=== PATIENT | male | born 1965 | race Caucasian/White ===

== ENCOUNTER 2017-05-28 14:56 | Emergency (ER) | payer BC ==
[2017-05-28 15:03] VITALS: BP 126/75
[2017-05-28] MEDS ORDERED: Lidocaine 1% 20 ML MDV INJECT ONE (15:09)
[2017-05-28] MEDS ORDERED: Diphtheria,Pertussis(Acell),Tetanus Vaccine 0.5 ML SDV IM ONE (15:09)
[2017-05-28] MEDS ORDERED: Bacitracin Oint 1 GM U/D Packet TOP ONE (15:10)
--- NOTE | 2017-05-28 15:11 | EDM.PDOC ---
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 He end up with a laceraion on the thumb side that went through the nailbed area. Onset: Today Duration: Hour(s): Location: Reports: Upper Extremity, Right Quality: Reports: Throbbing Associated Symptoms: Reports: No Other Symptoms Right 2-Index finger Pain Score (Numeric/FACES): 7 - Related Data Allergies Allergy/AdvReac Type Severity Reaction Status Date / Time No Known Allergies Allergy Verified 05/28/17 15:05 Home Meds: Home Meds Losartan [Cozaar] 50 mg PO DAILY 05/18/16 [History] Past Medical History Cardiovascular History: Reports: Hypertension Musculoskeletal History: Reports: Fracture - Infectious Disease History Infectious Disease History: Reports: Chicken Pox - Past Surgical History Musculoskeletal Surgical History: Reports: Shoulder Surgery Social & Family History - Tobacco Use Smoking Status *Q: Never Smoker - Recreational Drug Use Recreational Drug Use: No ED ROS GENERAL - Review of Systems Review Of Systems: See Below Constitutional: Reports: No Symptoms HEENT: Reports: No Symptoms Respiratory: Reports: No Symptoms Cardiovascular: Reports: No Symptoms Endocrine: Reports: No Symptoms GI/Abdominal: Reports: No Symptoms : Reports: No Symptoms Musculoskeletal: Reports: Other (pt has a laceration of the tip of the rt index finger. ) ED EXAM, SKIN/RASH Exam: See Below Exam Limited By: No Limitations General Appearance: Alert Back Exam: Other (pt has a laceration on the thumb side of the rt index finger. This did extend into the nailbed area, 1 and1/4 inch laceration. An xray was obtained which revealed a tiny chipfracture off of the end. ) Extremities: Other Course - Vital Signs Last Recorded V/S: Last Vital Signs Temp 35.9 C 05/28/17 15:04 Pulse 73 05/28/17 15:04 Resp 18 05/28/17 15:04 BP 126/75 05/28/17 15:04 Pulse Ox 97 05/28/17 15:04 - Orders/Labs/Meds Meds: Medications Discontinued Medications Generic Name Dose Route Start Last Admin Trade Name Freq PRN Reason Stop Dose Admin Bacitracin 1 dose 05/28/17 15:10 05/28/17 15:27 Bacitracin Oint 1 Gm TOP 05/28/17 15:11 1 dose ONETIME ONE Administration Diphtheria/Tetanus/Acell Pertussis 0.5 ml 05/28/17 15:09 05/28/17 15:53 Adacel IM 05/28/17 15:10 Not Given .ONCE ONE Lidocaine HCl 20 ml 05/28/17 15:09 05/28/17 15:27 Xylocaine 1% INJECT 05/28/17 15:10 20 ml ONETIME ONE Administration - Re-Assessments/Exams Free Text/Narrative Re-Assessment/Exam: 05/28/17 17:15 the thumb was soaked. It was irrigated with saline and the wound was infiltrated. The wound was brought together with chromic 5-0 in the sub q. It was then closed with 5-0prolene. a stabilizing stitch was placed through the nail and the skin otherwise was brought together with 5-0 prolene. Departure - Departure Time of Disposition: 17:19 Disposition: Home, Self-Care 01 Condition: Fair Clinical Impression: Laceration, Open fracture of distal phalangeal tuft - Discharge Information Instructions: Laceration Care, Adult, [id number] Referrals: Liborio Cole MD [Primary Care Provider] - Forms: ED Department Discharge Care Plan Goals: leave present dressing on for 2 days, appt with Dr Juarez on mon or mon, percocet 5/325 q6h prn for pain, keflex 500mg tid for 10 days.
--- NOTE | 2017-05-29 11:50 | CR ---
Right hand Findings: There is a fracture of the tuft of the distal phalanx second finger. There is an overlying soft tissue injury. The remaining bones are intact. Impression: 1. Open second finger tuft fracture.
== END 2017-05-28 18:13 | disposition home or self-care (01) ==
LOC: JP.ED 14:56
DX: S62.630B Displaced fracture of distal phalanx of right index finger, initial encounter for open fracture (principal); I10 Essential (primary) hypertension; Z23 Encounter for immunization; Z79.899 Other long term (current) drug therapy; W23.0XXA Caught, crushed, jammed, or pinched between moving objects, initial encounter; Y93.89 Activity, other specified
CPT/HCPCS: 12042; 29130; 73140-26-F6; 73140-F6; 90471; 99284-25

== ENCOUNTER 2018-04-08 21:56 | Emergency (ER) | payer BC ==
--- NOTE | 2018-04-08 22:07 | EDM.PDOC ---
ED HPI GENERAL MEDICAL PROBLEM - General Chief Complaint: Chest Pain Stated Complaint: CHEST PAIN Time Seen by Provider: 04/08/18 22:15 Source of Information: Reports: Patient, RN History Limitations: Reports: No Limitations - History of Present Illness INITIAL COMMENTS - FREE TEXT/NARRATIVE: 53 yo male with a pHx of HTN and no other known risk factors for CAD presents with intermittent substernal chest pain over the past few days not associated with any activity or eating. When he gets these sx's he does not have SOB or diaphoresis. He is pretty much asymptomatic now in the ER. He has tried taking TUMS without relief. He does admit to taking ibuprofen 600 mg 2-3 times/day for sometime now for shoulder pain. No melena. No vomiting. Some radiation to his mid back. His last attack was just before arrival tonight. Onset: Unknown/Unsure Duration: Day(s):, Intermittent, Waxing/Waning Location: Reports: Chest, Back Quality: Reports: Burning Severity: Moderate Improves with: Reports: None Worsens with: Reports: None Context: Reports: Other (using ibuprofen regularly for shoulder pain.) Associated Symptoms: Reports: Chest Pain. Denies: Diaphoresis, Fever/Chills, Shortness of Breath Treatments FITTER TYPE BAR AND SEGMENT: Reports: NSAIDS, Other (see below) (TUMS) chest pain Pain Score (Numeric/FACES): 1 - Related Data Allergies Allergy/AdvReac Type Severity Reaction Status Date / Time No Known Allergies Allergy Verified 04/08/18 22:03 Home Meds: Home Meds Losartan [Cozaar] 50 mg PO DAILY 05/18/16 [History] Past Medical History Cardiovascular History: Reports: Hypertension Musculoskeletal History: Reports: Fracture - Infectious Disease History Infectious Disease History: Reports: Chicken Pox - Past Surgical History Musculoskeletal Surgical History: Reports: Shoulder Surgery ED ROS GENERAL - Review of Systems Review Of Systems: See Below Constitutional: Reports: No Symptoms HEENT: Reports: No Symptoms Respiratory: Reports: No Symptoms Cardiovascular: Reports: Chest Pain (substernal) Endocrine: Reports: No Symptoms GI/Abdominal: Reports: No Symptoms : Reports: No Symptoms Musculoskeletal: Reports: Back Pain (radiation from the chest, does not have back pain without the substernal pain. ) Skin: Reports: No Symptoms Neurological: Reports: No Symptoms ED EXAM, GENERAL - Physical Exam Exam: See Below Exam Limited By: No Limitations General Appearance: Alert, WD/WN, No Apparent Distress Eye Exam: Bilateral Eye: Normal Inspection Ears: Normal External Exam, Normal Canal, Hearing Grossly Normal Ear Exam: Bilateral Ear: Auricle Normal, Canal Normal Nose: Normal Inspection, Normal Mucosa, No Blood Throat/Mouth: Normal Inspection, Normal Lips, Normal Oropharynx, Normal Voice, No Airway Compromise Head: Atraumatic, Normocephalic Neck: Normal Inspection Respiratory/Chest: No Respiratory Distress, Lungs Clear, Normal Breath Sounds, No Accessory Muscle Use, Chest Non-Tender Cardiovascular: Regular Rate, Rhythm, No Edema GI/Abdominal: Normal Bowel Sounds, Soft, Non-Tender, No Distention Back Exam: Normal Inspection. No: CVA Tenderness (R), CVA Tenderness (L) Extremities: Normal Inspection Neurological: Alert, Oriented, CN II-XII Intact, Normal Cognition Psychiatric: Normal Affect, Normal Mood Skin Exam: Warm, Dry, Intact, Normal Color, No Rash EKG INTERPRETATION EKG Date: 04/08/18 Time: 22:00 Rhythm: NSR Rate (Beats/Min): 72 [place] English: Normal P-Wave: Present QRS: Normal ST-T: Normal QT: Normal Comparison: NA - No Prior EKG Course - Vital Signs Last Recorded V/S: Last Vital Signs Temp 36.9 C 04/08/18 22:16 Pulse 74 04/08/18 22:16 Resp 19 04/08/18 22:16 BP 137/85 04/08/18 22:16 Pulse Ox 97 04/08/18 22:16 - Orders/Labs/Meds Orders: Active Orders 24 hr Category Date Time Status Cardiac Monitoring [RC] .As Directed Care 04/08/18 21:57 Active EKG Documentation Completion [RC] ASDIRECTED Care 04/08/18 21:57 Active EKG 12 Lead [EK] Routine Ther 04/08/18 21:57 Ordered Labs: Laboratory Tests 04/08/18 Range/Units 22:24 Troponin I < 0.017 (0.000-0.056) ng/mL Meds: Medications Discontinued Medications Generic Name Dose Route Start Last Admin Trade Name Freq PRN Reason Stop Dose Admin Famotidine 40 mg 04/08/18 22:54 04/08/18 23:02 Pepcid PO 04/08/18 22:55 40 mg ONETIME ONE Administration Departure - Departure Time of Disposition: 23:04 Disposition: Home, Self-Care 01 Condition: Fair Clinical Impression: Gastroesophageal reflux disease Qualifiers: Esophagitis presence: with esophagitis Qualified Code(s): K21.0 - Gastro- esophageal reflux disease with esophagitis Referrals: PCP,None [Primary Care Provider] - Forms: ED Department Discharge - My Orders Last 24 Hours: My Active Orders 04/08/18 21:57 Cardiac Monitoring [RC] .As Directed EKG Documentation Completion [RC] ASDIRECTED EKG 12 Lead [EK] Routine - Assessment/Plan Last 24 Hours: My Active Orders 04/08/18 21:57 Cardiac Monitoring [RC] .As Directed EKG Documentation Completion [RC] ASDIRECTED EKG 12 Lead [EK] Routine
[2018-04-08 22:11] VITALS: BP 137/85
[2018-04-08] MEDS ORDERED: Famotidine 20 MG Tab PO ONE (22:54)
== END 2018-04-08 23:25 | disposition home or self-care (01) ==
LOC: JP.ED 21:56
DX: K21.0 Gastro-esophageal reflux disease with esophagitis (principal); Z79.899 Other long term (current) drug therapy
CPT/HCPCS: 36415; 84484; 93005; 99285; A9270

== ENCOUNTER 2019-04-20 18:27 | Emergency (ER) | payer BC, OTHER ==
[2019-04-20 18:43] VITALS: BP 145/92
--- NOTE | 2019-04-20 19:20 | EDM.PDOC ---
ED HPI GENERAL MEDICAL PROBLEM - General Chief Complaint: Eye Problems Stated Complaint: LEFT EYE INFECTION Time Seen by Provider: 04/20/19 18:43 Source of Information: Reports: Patient History Limitations: Reports: No Limitations - History of Present Illness INITIAL COMMENTS - FREE TEXT/NARRATIVE: This man comes in with a sub-conjunctival hemorrhage which started about 1 PM today. It's in the lateral aspect of the left eye. He's concerned because he had the same thing about 2 weeks ago in exactly the same place. He denies any trauma there no visual changes. He doesn't take aspirin but he does take quite a bit of ibuprofen and took some this morning. He denies any other kind of bleeding problems. Left Eye Pain Score (Numeric/FACES): 1 - Related Data Allergies Allergy/AdvReac Type Severity Reaction Status Date / Time No Known Allergies Allergy Verified 04/20/19 18:42 Home Meds: Home Meds Losartan [Cozaar] 50 mg PO DAILY 05/18/16 [History] Famotidine [Pepcid] 40 mg PO QPM #30 tablet 04/08/18 [Rx] Omeprazole Magnesium [Prilosec Otc] 20 mg PO DAILY 04/20/19 [History] Past Medical History HEENT History: Reports: Impaired Vision Cardiovascular History: Reports: Hypertension Gastrointestinal History: Reports: Other (See Below) Other Gastrointestinal History: acid reflux Musculoskeletal History: Reports: Fracture Endocrine/Metabolic History: Reports: Obesity/BMI 30+ - Infectious Disease History Infectious Disease History: Reports: Chicken Pox - Past Surgical History Head Surgeries/Procedures: Reports: None Cardiovascular Surgical History: Reports: None GI Surgical History: Reports: None Endocrine Surgical History: Reports: None Musculoskeletal Surgical History: Reports: Shoulder Surgery Dermatological Surgical History: Reports: None Social & Family History - Tobacco Use Smoking Status *Q: Never Smoker Second Hand Smoke Exposure: No - Caffeine Use Caffeine Use: Reports: Soda - Recreational Drug Use Recreational Drug Use: No ED ROS GENERAL - Review of Systems Review Of Systems: ROS reveals no pertinent complaints other than HPI. ED EXAM GENERAL W FULL EYE - Physical Exam Exam: See Below Exam Limited By: No Limitations General Appearance: Alert, WD/WN, No Apparent Distress Eye Exam: Left Eye: Other (There is some conjunctival hemorrhage to the lateral side of the left eye it extends right up to the margin of the iris. There are no obvious lesions in that area. Vision tested normal per the patient though I don't see that on the chart yet.), Bilateral Eye: EOMI, PERRL Course - Vital Signs Last Recorded V/S: Last Vital Signs Temp 35.7 C 04/20/19 18:44 Pulse 69 04/20/19 18:44 Resp 16 04/20/19 18:44 BP 145/92 H 04/20/19 18:44 Pulse Ox 94 L 04/20/19 18:44 - Orders/Labs/Meds Orders: Active Orders 24 hr Category Date Time Status Visual Acuity [Vision Test] [RC] ASDIRECTED Care 04/20/19 18:44 Active Departure - Departure Time of Disposition: 19:17 Disposition: Home, Self-Care 01 Condition: Fair Clinical Impression: Subconjunctival hemorrhage of left eye - Discharge Information Referrals: Liborio Cole MD [Primary Care Provider] - Additional Instructions: Avoid ibuprofen for the next few days. Have your eye doctor examine you as soon as the bleeding clears up to make sure there is not some kind of a lesion on the eye that's causing it to bleed. If you have more bleeding problems then it would be worthwhile to have your blood tested. That's not really indicated at the moment since the bleeding is most likely due to ibuprofen. - My Orders Last 24 Hours: My Active Orders 04/20/19 18:44 Visual Acuity [Vision Test] [RC] ASDIRECTED - Assessment/Plan Last 24 Hours: My Active Orders 04/20/19 18:44 Visual Acuity [Vision Test] [RC] ASDIRECTED
== END 2019-04-20 19:33 | disposition home or self-care (01) ==
LOC: JP.ED 18:27
DX: H11.32 Conjunctival hemorrhage, left eye (principal); E66.9 Obesity, unspecified; I10 Essential (primary) hypertension; K21.9 Gastro-esophageal reflux disease without esophagitis; Z79.899 Other long term (current) drug therapy
CPT/HCPCS: 99283